=== PATIENT | male | born 1960 | race Caucasian/White ===

== ENCOUNTER 2016-09-17 22:01 | Emergency (ER) | payer OTHER ==
[~2016-09-17] VITALS: Ht 182.9 cm; Wt 125.0 kg
[~2016-09-17 22:01] MED LIST: ADVIL,NUPRIN,M200 MG PO; ALDACTONE100 MG PO; CHLORDIAZEPOXID25 MG PO; FOLIC ACID1 MG PO; HYDROCHLOROTHIA25 MG PO; Thiamine,Vitamin B1 PO
[2016-09-17 23:11] LABS: HEMATOCRIT 31.8 % (38.0-50.0); MCH 35.8 PG (29.0-34.0); MCHC 36.5 G/DL (30.0-36.0); MCV 98.1 FL (86-99); PLATELET COUNT 145 K/uL (156-360); RBC DIS.WIDTH-CV 17.2 % (11.8-14.6); RBC DIS.WIDTH-SD 57.9 % (39-53); RED BLOOD COUNT 3.24 M/uL (4.00-5.50); WHITE BLOOD COUNT 3.7 K/uL (4.1-10.2)
[2016-09-17 23:12] LABS: EOSINOPHIL (%) 9.6 % (0-5); EOSINOPHIL COUNT 0.4 K/uL (0-0.3); IMMATURE GRANULOCYTE (%) 0.3 % (0.0-0.7); IMMATURE GRANULOCYTE COUNT 0.1 K/uL; LYMPHOCYTE COUNT 0.9 K/uL (1.0-2.8); MONOCYTE (%) 5.2 % (3-12); MONOCYTE COUNT 0.2 K/uL (0-0.8); NEUTROPHIL (%) 60.6 % (45-76); NEUTROPHIL COUNT 2.2 K/uL (1.8-6.4)
[2016-09-17 23:22] LABS: CHLORIDE 106 mEq/L (99-109); POTASSIUM 3.8 mEq/L (3.7-5.4); SODIUM 139 mEq/L (136-147)
[2016-09-17 23:24] LABS: GLUCOSE 100 mg/dL (70-99)
[2016-09-17 23:26] LABS: ANION GAP 9 MEQ/L (2-14); TOTAL BILIRUBIN 3.5 mg/dL (0.0-1.0)
[2016-09-17 23:28] LABS: ALKALINE PHOSPHATASE 125 IU/L (3-129); GFR ESTIMATE (CALCULATED) > 59 mL/min/
[2016-09-17 23:29] LABS: UREA NITROGEN (BUN) 32 mg/dL (9-23)
[2016-09-17 23:31] LABS: LIPASE 80 U/L (1.0-51.0)
[2016-09-17 23:32] LABS: TROP-I INTERPRETATION NEGATIVE; TROPONIN-I 0.02 ng/mL (0.0-0.30)
[2016-09-18] MEDS ORDERED: SPIRONOLACTONE100 MG PO (01:58)
[2016-09-18] MEDS ORDERED: FUROSEMIDE20 MG PO (01:59)
[2016-09-18] MEDS ORDERED: MULTI COMPLETE1 EACH PO (01:59)
[2016-09-18 05:16] VITALS: BP 130/65
== END 2016-09-18 05:26 | disposition short-term general hospital (02) ==
LOC: EME 22:01
PROVIDERS: Emergency Medicine
DX: K25.1 Acute gastric ulcer with perforation (principal); K66.8 Other specified disorders of peritoneum; J90 Pleural effusion, not elsewhere classified; K29.00 Acute gastritis without bleeding; K76.6 Portal hypertension; K85.90 Acute pancreatitis without necrosis or infection, unspecified; R18.8 Other ascites; R11.2 Nausea with vomiting, unspecified; K72.90 Hepatic failure, unspecified without coma
CPT/HCPCS: 71010; 74177; 80053; 83605; 83690; 84484; 85025; 86850; 86900; 86901; 87040; 93005; 99281; 99285; J2270; J2405; J2543; J3370; J7030

== ENCOUNTER 2016-10-20 12:52 | Inpatient (IN) | payer OTHER ==
[2016-10-20] VITALS (9 sets, daily range): BP systolic 107–133; BP diastolic 54–71
[~2016-10-20] VITALS: Ht 182.9 cm; Wt 92.5 kg
[~2016-10-20 12:52] MED LIST changes: +FUROSEMIDE20 MG PO; +MULTI COMPLETE1 EACH PO; +SPIRONOLACTONE100 MG PO
[2016-10-20 14:11] LABS: INTER. NORMALIZED RATIO 2.1; MCH 35.4 PG (29.0-34.0); MCHC 34.4 G/DL (30.0-36.0); MCV 102.9 FL (86-99); PROTHROMBIN TIME 21.9 (9.2-11.2); PTT 43.5 (25-32); RBC DIS.WIDTH-CV 18.1 % (11.8-14.6); RBC DIS.WIDTH-SD 70.4 % (39-53); RED BLOOD COUNT 1.75 M/uL (4.00-5.50); WHITE BLOOD COUNT 4.3 K/uL (4.1-10.2)
[2016-10-20 14:19] LABS: CHLORIDE 102 mEq/L (99-109); POTASSIUM 5.2 mEq/L (3.7-5.4); SODIUM 132 mEq/L (136-147)
[2016-10-20 14:21] LABS: GLUCOSE 131 mg/dL (70-99)
[2016-10-20 14:22] LABS: ANION GAP 11 MEQ/L (2-14)
[2016-10-20 14:23] LABS: TOTAL BILIRUBIN 4.6 mg/dL (0.0-1.0)
[2016-10-20 14:25] LABS: ALKALINE PHOSPHATASE 71 IU/L (3-129); GFR ESTIMATE (CALCULATED) > 59 mL/min/
[2016-10-20 14:26] LABS: UREA NITROGEN (BUN) 31 mg/dL (9-23)
[2016-10-20 14:27] LABS: DIRECT BILIRUBIN 1.8 mg/dL (0.0-0.3)
[2016-10-20 14:28] LABS: LIPASE 37 U/L (1.0-51.0)
[2016-10-20 14:31] LABS: TROP-I INTERPRETATION NEGATIVE; TROPONIN-I < 0.01 ng/mL (0.0-0.30)
[2016-10-20 14:43] LABS: IMM.PLATELET FRACTION 3.1 (1-7); MEAN PLAT.VOLUME 10.6 uM^3 (9.0-12.4); PLAT.SUFFICIENCY DECREASED; PLATELET COUNT 36 K/uL (156-360)
[2016-10-20 15:21] LABS: ADD MIUA? YES; BILIRUBIN NEGATIVE; BLOOD MODERATE; COLOR YELLOW ((YELLOW)); GLUCOSE (STRIP) NEGATIVE; KETONES NEGATIVE; LEUKOCYTES TRACE; NITRITE NEGATIVE; PROTEIN (STRIP) NEGATIVE; SPECIFIC GRAVITY 1.013 (1.000-1.030); UROBILINOGEN 0.2 MG/DL (0.2-1.0)
[2016-10-20] MEDS ORDERED: ALDACTONE50 MG PO (15:35)
[2016-10-20] MEDS ORDERED: OXYCODONE HCL10 MG PO (15:36)
[2016-10-20] MEDS ORDERED: CARDURA1 M1 PO (15:36)
[2016-10-20] MEDS ORDERED: PROTONIX40 MG PO (15:37)
[2016-10-20] MEDS ORDERED: PROTONIX20 MG PO (15:37)
[2016-10-20] MEDS ORDERED: AUGMENTIN875 MG PO (15:37)
[2016-10-20] MEDS ORDERED: CONSTULOSE10 GM/15 M PO (15:37)
[2016-10-20] MEDS ORDERED: ZYVOX600 MG PO (15:38)
[2016-10-20 15:39] LABS: BACTERIA NONE SEEN /HPF; EPITHELIAL CELLS NONE SEEN /HPF; HYALINE CASTS 0-5 /LPF; MUCUS TRACE /LPF; UCUL ADDED? NO; WHITE BLOOD CELLS 0-5 /HPF (0-5)
[2016-10-20] MEDS ORDERED: FLAGYL500 MG PO (15:39)
[2016-10-20 22:21] LABS: C DIFF TOXIN NEGATIVE (NEGATIVE); PROBE CHECK PASS; SPECIMEN PROCESSING CONTROL PASS
[2016-10-21] VITALS (18 sets, daily range): BP systolic 119–158; BP diastolic 56–79
[2016-10-21 07:38] LABS: HEMATOCRIT 18.8 % (38.0-50.0); MCH 33.3 PG (29.0-34.0); RBC DIS.WIDTH-CV 20.1 % (11.8-14.6); RBC DIS.WIDTH-SD 71.8 % (39-53); RED BLOOD COUNT 1.92 M/uL (4.00-5.50); WHITE BLOOD COUNT 3.7 K/uL (4.1-10.2)
[2016-10-21 07:45] LABS: ANION GAP 9 MEQ/L (2-14); CHLORIDE 103 MEQ/L (99-109); GFR ESTIMATE (CALCULATED) > 59 mL/min/; GLUCOSE 94 mg/dL (70-99); POTASSIUM 4.7 MEQ/L (3.7-5.4); SAMPLE HEMOLYSIS CHECK 0; SAMPLE ICTERIC CHECK 2; SAMPLE LIPEMIA CHECK 0; SODIUM 134 MEQ/L (136-147); UREA NITROGEN (BUN) 25 mg/dL (9-23)
[2016-10-21 07:50] LABS: MCV 97.9 FL (86-99)
[2016-10-21 08:47] LABS: IMM.PLATELET FRACTION 2.6 (1-7); MEAN PLAT.VOLUME 11.5 uM^3 (9.0-12.4); PLAT.SUFFICIENCY DECREASED
[2016-10-21 08:48] LABS: PLATELET COUNT 30 K/uL (156-360)
[2016-10-21 13:14] LABS: HEMATOCRIT 19.7 % (38.0-50.0); MCH 33.8 PG (29.0-34.0); MCV 99.5 FL (86-99); RBC DIS.WIDTH-CV 20.7 % (11.8-14.6); RBC DIS.WIDTH-SD 75.3 % (39-53); RED BLOOD COUNT 1.98 M/uL (4.00-5.50); WHITE BLOOD COUNT 5.1 K/uL (4.1-10.2)
[2016-10-21 14:17] LABS: IMM.PLATELET FRACTION 3.4 (1-7); MEAN PLAT.VOLUME 11.2 uM^3 (9.0-12.4); PLAT.SUFFICIENCY DECREASED; PLATELET COUNT 34 K/uL (156-360)
[2016-10-21 19:30] LABS: AMPHETAMINES QUANT VALUE 0 NG/ML; BARBITUATES QUANT VALUE 0 NG/ML; BENZODIAZEPINES QUANT VALUE 0 NG/ML; BENZODIAZEPINES, URINE SCREEN Negative (200 ng/mL); MARIJUANA QUANT VALUE 0 NG/ML; OPIATES QUANTITATIVE VALUE 0 NG/ML; PHENCYCLIDINE QUANT VALUE 0 NG/ML
[2016-10-22 00:15] VITALS: BP 117/50
[2016-10-22 03:24] VITALS: BP 131/62
[2016-10-22 08:20] VITALS: BP 118/59
[2016-10-22 08:35] LABS: ANION GAP 6 MEQ/L (2-14); CHLORIDE 104 MEQ/L (99-109); POTASSIUM 4.7 MEQ/L (3.7-5.4); SAMPLE HEMOLYSIS CHECK 0; SAMPLE ICTERIC CHECK 2; SAMPLE LIPEMIA CHECK 0; SODIUM 135 MEQ/L (136-147)
[2016-10-22 08:41] LABS: GFR ESTIMATE (CALCULATED) > 59 mL/min/; GLUCOSE 99 mg/dL (70-99); UREA NITROGEN (BUN) 22 mg/dL (9-23)
[2016-10-22 09:03] LABS: HEMATOCRIT 23.2 % (38.0-50.0); MCH 33.3 PG (29.0-34.0); MCHC 34.5 G/DL (30.0-36.0); MCV 96.7 FL (86-99); RBC DIS.WIDTH-CV 20.3 % (11.8-14.6); RBC DIS.WIDTH-SD 69.7 % (39-53)
[2016-10-22 09:20] LABS: PLAT.SUFFICIENCY VERY DECREASED; PLATELET COUNT 26 K/uL (156-360)
[2016-10-22 11:41] VITALS: BP 142/65
[2016-10-22] MEDS ORDERED: XIFAXAN550 MG PO (12:11)
[2016-10-22] MEDS ORDERED: AMOX TR-K CLV1 EAC4 PO (12:11)
[2016-10-22] MEDS ORDERED: METRONIDAZOLE500 MG PO (12:12)
[2016-10-22] MEDS ORDERED: Chronulac,Cephulac,E PO (12:13)
== END 2016-10-22 13:04 | disposition home health service (06) | DRG 377 ==
LOC: EME → EDBD 12:52 → EME 12:52 → 5SOUTH 20:17 → EDOF 20:17 → 5SOUTH 22:29
PROVIDERS: Emergency Medicine; Family Medicine; Internal Medicine Gastroenterology; Nurse Practitioner Adult Health
DX: K92.2 Gastrointestinal hemorrhage, unspecified (principal); K72.00 Acute and subacute hepatic failure without coma; E87.1 Hypo-osmolality and hyponatremia; K70.31 Alcoholic cirrhosis of liver with ascites; D69.6 Thrombocytopenia, unspecified; R73.9 Hyperglycemia, unspecified; I10 Essential (primary) hypertension; D53.9 Nutritional anemia, unspecified; R79.89 Other specified abnormal findings of blood chemistry; R53.1 Weakness
CPT/HCPCS: 70450; 74176; 80048; 80076; 80306 90; 81003; 82140; 83690; 84484; 85027; 85610; 85730; 86850; 86880; 86900; 86901; 86920; 87493; 87506; 93005; 99281; 99285; C9113; G0480; P9016; P9017; P9040

== ENCOUNTER → 2017-02-01 | Outpatient (CLI) | payer OTHER ==
[~2017-02-01] VITALS: Ht 182.9 cm; Wt 90.7 kg
[~2017-02-01] MED LIST changes: +ALDACTONE50 MG PO; +AMOX TR-K CLV1 EAC4 PO; +AUGMENTIN875 MG PO; +CARDURA1 M1 PO; +CONSTULOSE10 GM/15 M PO; +Chronulac,Cephulac,E PO; +ENULOSE10 GM/15 M PO; +FLAGYL500 MG PO; +LYRICA100 MG PO; +METRONIDAZOLE500 MG PO; +NUTRITIONAL SH PO; +OXAYDO5 MG PO; +OXYCODONE HCL10 MG PO; +PRILOSEC20 MG PO; +PROTONIX20 MG PO; +PROTONIX40 MG PO; +XIFAXAN550 MG PO; +ZYVOX600 MG PO
== END | disposition home or self-care (01) ==
LOC: AMB 10:42 → OPR 13:00 → AMB 14:30
DX: Z12.11 Encounter for screening for malignant neoplasm of colon (principal); D12.7 Benign neoplasm of rectosigmoid junction; D12.2 Benign neoplasm of ascending colon; D12.5 Benign neoplasm of sigmoid colon; D12.3 Benign neoplasm of transverse colon; K76.6 Portal hypertension; K31.89 Other diseases of stomach and duodenum; K64.8 Other hemorrhoids; K70.40 Alcoholic hepatic failure without coma; I10 Essential (primary) hypertension
CPT/HCPCS: 88305; J3010

== ENCOUNTER 2017-04-06 09:08 | Emergency (ER) | payer OTHER ==
[~2017-04-06] VITALS: Ht 182.9 cm; Wt 99.0 kg
[2017-04-06 10:11] LABS: EOSINOPHIL (%) 3.6 % (0-5); EOSINOPHIL COUNT 0.3 K/uL (0-0.3); HEMATOCRIT 32.4 % (38.0-50.0); IMMATURE GRANULOCYTE (%) 0.3 % (0.0-0.7); INSTRUMENT ABS NEUTROPHIL CT 5.4 K/uL; LYMPHOCYTE COUNT 0.7 K/uL (1.0-2.8); MCH 35.1 PG (29.0-34.0); MCHC 34.9 G/DL (30.0-36.0); MCV 100.6 FL (86-99); MEAN PLAT.VOLUME 10.5 uM^3 (9.0-12.4); MONOCYTE (%) 9.6 % (3-12); MONOCYTE COUNT 0.7 K/uL (0-0.8); NEUTROPHIL (%) 76.8 % (45-76); NEUTROPHIL COUNT 5.4 K/uL (1.8-6.4); PLATELET COUNT 69 K/uL (156-360); RBC DIS.WIDTH-CV 17.1 % (11.8-14.6); RBC DIS.WIDTH-SD 62.9 % (39-53); RED BLOOD COUNT 3.22 M/uL (4.00-5.50)
[2017-04-06 10:17] LABS: INTER. NORMALIZED RATIO 2.2; PROTHROMBIN TIME 24.9 SEC (10.2-12.9)
[2017-04-06 10:20] LABS: PTT 40.4 SEC (25-37)
[2017-04-06 10:22] LABS: CHLORIDE 107 mEq/L (99-109); POTASSIUM 4.2 mEq/L (3.7-5.4); SODIUM 136 mEq/L (136-147)
[2017-04-06 10:24] LABS: GLUCOSE 91 mg/dL (70-99)
[2017-04-06 10:26] LABS: ANION GAP 8 MEQ/L (2-14)
[2017-04-06 10:27] LABS: TOTAL BILIRUBIN 6.5 mg/dL (0.0-1.0)
[2017-04-06 10:28] LABS: ALKALINE PHOSPHATASE 122 IU/L (3-129); GFR ESTIMATE (CALCULATED) > 59 mL/min/
[2017-04-06 10:33] LABS: UREA NITROGEN (BUN) 29 mg/dL (9-23)
[2017-04-06 12:01] LABS: SERUM ETHYL ALCOHOL < 10 mg/dL
[2017-04-06 13:25] LABS: AMPHETAMINE NEGATIVE (500 ng/mL); BARBITURATES NEGATIVE (200 ng/mL); BENZODIAZEPINES NEGATIVE (150 ng/mL); COCAINE NEGATIVE (150 ng/mL); METHADONE NEGATIVE (200 ng/mL); METHAMPHETAMINE NEGATIVE (500 ng/mL); OPIATES (MORPHINE) NEGATIVE (100 ng/mL); OXYCODONE NEGATIVE (100 ng/mL); PHENCYCLIDINE NEGATIVE (25 ng/mL); PROPOXYPHENE NEGATIVE (300 ng/mL); THC CANNABINOIDS NEGATIVE (50 ng/mL); TRICYCLIC ANTIDEPRESSANTS NEGATIVE (300 ng/mL)
[2017-04-06 13:26] LABS: INTERNAL CONTROLS VALID? YES
[2017-04-06 14:41] VITALS: BP 109/54
== END 2017-04-06 14:51 | disposition home or self-care (01) ==
LOC: EME 09:08
PROVIDERS: Emergency Medicine
DX: R60.1 Generalized edema (principal); R74.8 Abnormal levels of other serum enzymes; K76.9 Liver disease, unspecified; I10 Essential (primary) hypertension; F10.10 Alcohol abuse, uncomplicated; Z87.19 Personal history of other diseases of the digestive system
CPT/HCPCS: 80053; 82140; 85025; 85610; 85730; 99281; 99284; G0480; J1940

== ENCOUNTER 2017-04-10 12:36 | Inpatient (IN) | payer OTHER ==
[~2017-04-10] VITALS: Ht 182.9 cm; Wt 95.8 kg
[2017-04-10 13:34] LABS: EOSINOPHIL (%) 1.6 % (0-5); EOSINOPHIL COUNT 0.2 K/uL (0-0.3); HEMATOCRIT 31.2 % (38.0-50.0); IMMATURE GRANULOCYTE COUNT 0.1 K/uL; INSTRUMENT ABS NEUTROPHIL CT 8.8 K/uL; LYMPHOCYTE COUNT 0.6 K/uL (1.0-2.8); MCHC 34.9 G/DL (30.0-36.0); MCV 100.3 FL (86-99); MEAN PLAT.VOLUME 12.4 uM^3 (9.0-12.4); MONOCYTE (%) 10.2 % (3-12); MONOCYTE COUNT 1.1 K/uL (0-0.8); NEUTROPHIL (%) 81.2 % (45-76); NEUTROPHIL COUNT 8.8 K/uL (1.8-6.4); PLATELET COUNT 82 K/uL (156-360); RBC DIS.WIDTH-CV 17.7 % (11.8-14.6); RBC DIS.WIDTH-SD 64.8 % (39-53); RED BLOOD COUNT 3.11 M/uL (4.00-5.50); WHITE BLOOD COUNT 10.9 K/uL (4.1-10.2)
[2017-04-10 13:39] LABS: CHLORIDE 106 mEq/L (99-109); POTASSIUM 3.9 mEq/L (3.7-5.4); SODIUM 137 mEq/L (136-147)
[2017-04-10 13:41] LABS: GLUCOSE 111 mg/dL (70-99)
[2017-04-10 13:42] LABS: ADD MIUA? YES; BILIRUBIN NEGATIVE; BLOOD MODERATE; COLOR AMBER ((YELLOW)); GLUCOSE (STRIP) NEGATIVE; KETONES NEGATIVE; LEUKOCYTES SMALL; NITRITE NEGATIVE; PROTEIN (STRIP) 30; SPECIFIC GRAVITY 1.015 (1.000-1.030)
[2017-04-10 13:43] LABS: ANION GAP 13 MEQ/L (2-14); TOTAL BILIRUBIN 7.6 mg/dL (0.0-1.0)
[2017-04-10 13:44] LABS: INTER. NORMALIZED RATIO 2.5; PROTHROMBIN TIME 28.3 SEC (10.2-12.9)
[2017-04-10 13:45] LABS: ALKALINE PHOSPHATASE 114 IU/L (3-129); GFR ESTIMATE (CALCULATED) > 59 mL/min/
[2017-04-10 13:46] LABS: UREA NITROGEN (BUN) 38 mg/dL (9-23)
[2017-04-10 13:46] LABS: BACTERIA 1+ /HPF; EPITHELIAL CELLS NONE SEEN /HPF; MUCUS TRACE /LPF; RED BLOOD CELLS 15-20 /HPF (0-5); WHITE BLOOD CELLS 40-50 /HPF (0-5)
[2017-04-10 20:08] VITALS: BP 115/59
[2017-04-10 23:29] VITALS: BP 109/55
[2017-04-11 04:06] VITALS: BP 102/58
[2017-04-11 08:26] VITALS: BP 126/57
[2017-04-11 12:35] LABS: HEMATOCRIT 32.9 % (38.0-50.0); MCH 36.1 PG (29.0-34.0); MCHC 34.7 G/DL (30.0-36.0); MCV 104.1 FL (86-99); MEAN PLAT.VOLUME 11.8 uM^3 (9.0-12.4); RBC DIS.WIDTH-CV 17.6 % (11.8-14.6); RBC DIS.WIDTH-SD 67.4 % (39-53); RED BLOOD COUNT 3.16 M/uL (4.00-5.50); WHITE BLOOD COUNT 11.6 K/uL (4.1-10.2)
[2017-04-11 12:43] LABS: ANION GAP 8 MEQ/L (2-14); CHLORIDE 106 MEQ/L (99-109); GFR ESTIMATE (CALCULATED) > 59 mL/min/; GLUCOSE 110 mg/dL (70-99); POTASSIUM 4.2 MEQ/L (3.7-5.4); SAMPLE HEMOLYSIS CHECK 0; SAMPLE ICTERIC CHECK 2; SAMPLE LIPEMIA CHECK 0; SODIUM 138 MEQ/L (136-147); UREA NITROGEN (BUN) 31 mg/dL (9-23)
[2017-04-11 12:59] LABS: PLATELET COUNT 107 K/uL (156-360)
[2017-04-11 15:52] VITALS: BP 111/56
[2017-04-11 19:39] VITALS: BP 109/53
[2017-04-11 23:30] VITALS: BP 103/52
[2017-04-12 07:43] VITALS: BP 105/54
[2017-04-12 07:49] LABS: ANION GAP 4 MEQ/L (2-14); CHLORIDE 107 MEQ/L (99-109); GFR ESTIMATE (CALCULATED) > 59 mL/min/; SAMPLE HEMOLYSIS CHECK 0; SAMPLE ICTERIC CHECK 2; SAMPLE LIPEMIA CHECK 0; SODIUM 138 MEQ/L (136-147); UREA NITROGEN (BUN) 30 mg/dL (9-23)
[2017-04-12 07:51] LABS: GLUCOSE 72 mg/dL (70-99)
[2017-04-12 07:55] LABS: MCH 36.2 PG (29.0-34.0); MCHC 34.8 G/DL (30.0-36.0); MCV 103.9 FL (86-99); MEAN PLAT.VOLUME 9.8 uM^3 (9.0-12.4); PLAT.SUFFICIENCY DECREASED; PLATELET COUNT 69 K/uL (156-360); RBC DIS.WIDTH-CV 17.2 % (11.8-14.6); RBC DIS.WIDTH-SD 66.1 % (39-53); RED BLOOD COUNT 2.79 M/uL (4.00-5.50); WHITE BLOOD COUNT 5.1 K/uL (4.1-10.2)
[2017-04-12 12:39] VITALS: BP 107/54
[2017-04-12 16:28] VITALS: BP 117/56
[2017-04-13 00:07] VITALS: BP 124/58
[2017-04-13 08:12] VITALS: BP 114/76
[2017-04-13] MEDS ORDERED: AUGMENTIN875 MG PO (12:22)
[2017-04-13 14:34] LABS: ADD MIUA? YES; BILIRUBIN NEGATIVE; BLOOD LARGE; COLOR AMBER ((YELLOW)); GLUCOSE (STRIP) NEGATIVE; KETONES NEGATIVE; LEUKOCYTES MODERATE; NITRITE NEGATIVE; PROTEIN (STRIP) NEGATIVE; SPECIFIC GRAVITY 1.016 (1.000-1.030)
[2017-04-13 14:53] LABS: BACTERIA RARE /HPF; EPITHELIAL CELLS RARE /HPF; MUCUS TRACE /LPF; RED BLOOD CELLS 20-30 /HPF (0-5); UCUL ADDED? YES; UNCLASSIFIED CRYSTALS 1+ /HPF; WHITE BLOOD CELLS TNTC /HPF (0-5)
== END 2017-04-13 15:47 | disposition home health service (06) | DRG 603 ==
LOC: EME 12:36 → EDOF 14:24 → 3EAST 14:24 → ENRESERV 14:48 → 3EAST 19:50
PROVIDERS: Emergency Medicine; Family Medicine
DX: L03.115 Cellulitis of right lower limb (principal); K92.2 Gastrointestinal hemorrhage, unspecified; N39.0 Urinary tract infection, site not specified; D64.9 Anemia, unspecified; K76.6 Portal hypertension; Z76.82 Awaiting organ transplant status; L03.116 Cellulitis of left lower limb; K70.31 Alcoholic cirrhosis of liver with ascites; I10 Essential (primary) hypertension; F10.10 Alcohol abuse, uncomplicated; I42.0 Dilated cardiomyopathy; Z68.28 Body mass index [BMI] 28.0-28.9, adult; Z87.891 Personal history of nicotine dependence
CPT/HCPCS: 80048; 80053; 81003; 82140; 85025; 85027; 85610; 87086; 99281; 99285; J0295; J7050

== ENCOUNTER 2017-04-21 14:14 | Inpatient (IN) | payer OTHER ==
[~2017-04-21] VITALS: Ht 182.9 cm; Wt 88.7 kg
[2017-04-21 15:37] LABS: HEMATOCRIT 27.6 % (38.0-50.0); MCH 36.2 PG (29.0-34.0); MCHC 35.5 G/DL (30.0-36.0); MCV 101.8 FL (86-99); MEAN PLAT.VOLUME 10.4 uM^3 (9.0-12.4); RBC DIS.WIDTH-CV 17.8 % (11.8-14.6); RBC DIS.WIDTH-SD 65.9 % (39-53); RED BLOOD COUNT 2.71 M/uL (4.00-5.50); WHITE BLOOD COUNT 19.9 K/uL (4.1-10.2)
[2017-04-21 15:38] LABS: PLATELET COUNT 124 K/uL (156-360)
[2017-04-21 15:42] LABS: PROTHROMBIN TIME 22.1 SEC (10.2-12.9)
[2017-04-21 15:45] LABS: PTT 40.2 SEC (25-37)
[2017-04-21 15:47] LABS: CHLORIDE 99 mEq/L (99-109); SODIUM 127 mEq/L (136-147)
[2017-04-21 15:49] LABS: GLUCOSE 123 mg/dL (70-99)
[2017-04-21 15:51] LABS: ANION GAP 8 MEQ/L (2-14); TOTAL BILIRUBIN 7.5 mg/dL (0.0-1.0)
[2017-04-21 15:53] LABS: ALKALINE PHOSPHATASE 166 IU/L (3-129); GFR ESTIMATE (CALCULATED) > 59 mL/min/
[2017-04-21 15:54] LABS: UREA NITROGEN (BUN) 57 mg/dL (9-23)
[2017-04-21 17:00] LABS: ADD MIUA? YES; BILIRUBIN NEGATIVE; BLOOD LARGE; COLOR AMBER ((YELLOW)); GLUCOSE (STRIP) NEGATIVE; KETONES NEGATIVE; LEUKOCYTES MODERATE; NITRITE NEGATIVE; PROTEIN (STRIP) NEGATIVE; SPECIFIC GRAVITY 1.015 (1.000-1.030); UROBILINOGEN 0.2 MG/DL (0.2-1.0)
[2017-04-21 17:06] LABS: BACTERIA RARE /HPF; CALCIUM OXALATE CRYSTALS 2+ /HPF; EPITHELIAL CELLS RARE /HPF; MUCUS TRACE /LPF; RED BLOOD CELLS TNTC /HPF (0-5); UCUL ADDED? YES; WHITE BLOOD CELLS TNTC /HPF (0-5)
[2017-04-21] MEDS ORDERED: B-COMPLEX-VITA1 EACH PO (18:33)
[2017-04-21] MEDS ORDERED: BACTROBAN OINTM22 GM TP (18:33)
[2017-04-21] MEDS ORDERED: SUPER MULTIVIT1 EACH PO (18:33)
[2017-04-21 23:52] VITALS: BP 92/54
[2017-04-22 05:54] LABS: HEMATOCRIT 25.4 % (38.0-50.0); MCH 37.8 PG (29.0-34.0); MCHC 36.6 G/DL (30.0-36.0); MCV 103.3 FL (86-99); MEAN PLAT.VOLUME 10.7 uM^3 (9.0-12.4); PLATELET COUNT 104 K/uL (156-360); RBC DIS.WIDTH-SD 68.5 % (39-53); RED BLOOD COUNT 2.46 M/uL (4.00-5.50); WHITE BLOOD COUNT 12.5 K/uL (4.1-10.2)
[2017-04-22 08:26] VITALS: BP 92/54
[2017-04-22 09:21] LABS: ANION GAP 5 MEQ/L (2-14); CHLORIDE 100 MEQ/L (99-109); GFR ESTIMATE (CALCULATED) > 59 mL/min/; GLUCOSE 121 mg/dL (70-99); POTASSIUM 5.5 MEQ/L (3.7-5.4); SAMPLE HEMOLYSIS CHECK 1; SAMPLE ICTERIC CHECK 2; SAMPLE LIPEMIA CHECK 0; SODIUM 125 MEQ/L (136-147); TOTAL BILIRUBIN 6.7 MG/DL (0.0-1.0); UREA NITROGEN (BUN) 52 mg/dL (9-23)
[2017-04-22 09:25] LABS: ALKALINE PHOSPHATASE 133 IU/L (3-129)
[2017-04-22 16:18] VITALS: BP 100/49
[2017-04-23 00:50] VITALS: BP 102/54
[2017-04-23 06:55] VITALS: BP 93/50
[2017-04-23 09:06] LABS: MCHC 35.2 G/DL (30.0-36.0); MCV 102.5 FL (86-99); MEAN PLAT.VOLUME 10.6 uM^3 (9.0-12.4); RBC DIS.WIDTH-CV 18.3 % (11.8-14.6); RBC DIS.WIDTH-SD 69.1 % (39-53); RED BLOOD COUNT 2.83 M/uL (4.00-5.50)
[2017-04-23 09:08] LABS: PLATELET COUNT 151 K/uL (156-360)
[2017-04-23 09:36] LABS: ALKALINE PHOSPHATASE 135 IU/L (3-129); ANION GAP 5 MEQ/L (2-14); CHLORIDE 101 MEQ/L (99-109); GFR ESTIMATE (CALCULATED) > 59 mL/min/; GLUCOSE 128 mg/dL (70-99); POTASSIUM 5.4 MEQ/L (3.7-5.4); SAMPLE HEMOLYSIS CHECK 0; SAMPLE ICTERIC CHECK 2; SAMPLE LIPEMIA CHECK 0; SODIUM 126 MEQ/L (136-147); TOTAL BILIRUBIN 6.7 MG/DL (0.0-1.0); UREA NITROGEN (BUN) 54 mg/dL (9-23)
[2017-04-23 15:00] VITALS: BP 101/48
[2017-04-24 00:50] VITALS: BP 102/53
[2017-04-24 06:16] LABS: HEMATOCRIT 29.5 % (38.0-50.0); MCHC 35.3 G/DL (30.0-36.0); MEAN PLAT.VOLUME 10.2 uM^3 (9.0-12.4); PLATELET COUNT 156 K/uL (156-360); RBC DIS.WIDTH-SD 69.9 % (39-53); RED BLOOD COUNT 2.81 M/uL (4.00-5.50); WHITE BLOOD COUNT 9.8 K/uL (4.1-10.2)
[2017-04-24 06:37] LABS: ALKALINE PHOSPHATASE 146 IU/L (3-129); ANION GAP 3 MEQ/L (2-14); CHLORIDE 100 MEQ/L (99-109); GFR ESTIMATE (CALCULATED) > 59 mL/min/; GLUCOSE 108 mg/dL (70-99); POTASSIUM 5.7 MEQ/L (3.7-5.4); SAMPLE HEMOLYSIS CHECK 0; SAMPLE ICTERIC CHECK 2; SAMPLE LIPEMIA CHECK 0; SODIUM 126 MEQ/L (136-147); TOTAL BILIRUBIN 5.8 MG/DL (0.0-1.0); UREA NITROGEN (BUN) 56 mg/dL (9-23)
[2017-04-24 07:38] VITALS: BP 106/46
[2017-04-24 16:00] VITALS: BP 104/54
[2017-04-24 21:08] VITALS: BP 175/81
[2017-04-25] VITALS: BP 101/54
[2017-04-25 06:55] LABS: ALKALINE PHOSPHATASE 167 IU/L (3-129); ANION GAP 4 MEQ/L (2-14); CHLORIDE 97 MEQ/L (99-109); GFR ESTIMATE (CALCULATED) > 59 mL/min/; GLUCOSE 98 mg/dL (70-99); POTASSIUM 5.8 MEQ/L (3.7-5.4); SAMPLE HEMOLYSIS CHECK 0; SAMPLE ICTERIC CHECK 1; SAMPLE LIPEMIA CHECK 0; SODIUM 124 MEQ/L (136-147); UREA NITROGEN (BUN) 59 mg/dL (9-23)
[2017-04-25 06:57] LABS: TOTAL BILIRUBIN 4.2 MG/DL (0.0-1.0)
[2017-04-25 07:32] VITALS: BP 97/48
[2017-04-25 16:37] VITALS: BP 97/46
[2017-04-26] VITALS (9 sets, daily range): BP systolic 92–115; BP diastolic 48–54
[2017-04-26 07:19] LABS: ALKALINE PHOSPHATASE 169 IU/L (3-129); ANION GAP 3 MEQ/L (2-14); CHLORIDE 99 MEQ/L (99-109); GFR ESTIMATE (CALCULATED) > 59 mL/min/; GLUCOSE 86 mg/dL (70-99); SAMPLE HEMOLYSIS CHECK 0; SAMPLE ICTERIC CHECK 1; SAMPLE LIPEMIA CHECK 0; SODIUM 126 MEQ/L (136-147); UREA NITROGEN (BUN) 61 mg/dL (9-23)
[2017-04-26 07:22] LABS: POTASSIUM 6.1 MEQ/L (3.7-5.4)
[2017-04-26 11:44] LABS: HEMATOCRIT 29.1 % (38.0-50.0); MCH 37.5 PG (29.0-34.0); MCHC 35.4 G/DL (30.0-36.0); MCV 105.8 FL (86-99); MEAN PLAT.VOLUME 10.3 uM^3 (9.0-12.4); PLATELET COUNT 115 K/uL (156-360); RBC DIS.WIDTH-CV 18.1 % (11.8-14.6); RBC DIS.WIDTH-SD 69.8 % (39-53); RED BLOOD COUNT 2.75 M/uL (4.00-5.50); WHITE BLOOD COUNT 7.1 K/uL (4.1-10.2)
[2017-04-26 12:14] LABS: ALKALINE PHOSPHATASE 154 IU/L (3-129); ANION GAP 3 MEQ/L (2-14); CHLORIDE 100 MEQ/L (99-109); GFR ESTIMATE (CALCULATED) > 59 mL/min/; GLUCOSE 97 mg/dL (70-99); SAMPLE HEMOLYSIS CHECK 2; SAMPLE ICTERIC CHECK 1; SAMPLE LIPEMIA CHECK 0; SODIUM 126 MEQ/L (136-147); TOTAL BILIRUBIN 3.9 MG/DL (0.0-1.0); UREA NITROGEN (BUN) 60 mg/dL (9-23)
[2017-04-26 16:50] LABS: ANION GAP 2 MEQ/L (2-14); CHLORIDE 99 MEQ/L (99-109); POTASSIUM 5.7 MEQ/L (3.7-5.4); SAMPLE HEMOLYSIS CHECK 1; SAMPLE ICTERIC CHECK 1; SAMPLE LIPEMIA CHECK 0; SODIUM 127 MEQ/L (136-147)
[2017-04-26 16:55] LABS: GFR ESTIMATE (CALCULATED) > 59 mL/min/; GLUCOSE 105 mg/dL (70-99); UREA NITROGEN (BUN) 58 mg/dL (9-23)
[2017-04-26 21:24] LABS: ANION GAP 4 MEQ/L (2-14); CHLORIDE 100 MEQ/L (99-109); GFR ESTIMATE (CALCULATED) > 59 mL/min/; GLUCOSE 106 mg/dL (70-99); POTASSIUM 5.4 MEQ/L (3.7-5.4); SAMPLE HEMOLYSIS CHECK 0; SAMPLE ICTERIC CHECK 1; SAMPLE LIPEMIA CHECK 0; SODIUM 128 MEQ/L (136-147); UREA NITROGEN (BUN) 56 mg/dL (9-23)
[2017-04-27 07:25] VITALS: BP 101/55
[2017-04-27 07:27] LABS: ALKALINE PHOSPHATASE 140 IU/L (3-129); ANION GAP 3 MEQ/L (2-14); CHLORIDE 98 MEQ/L (99-109); GFR ESTIMATE (CALCULATED) > 59 mL/min/; GLUCOSE 114 mg/dL (70-99); POTASSIUM 5.3 MEQ/L (3.7-5.4); SAMPLE HEMOLYSIS CHECK 0; SAMPLE ICTERIC CHECK 1; SAMPLE LIPEMIA CHECK 0; SODIUM 126 MEQ/L (136-147); UREA NITROGEN (BUN) 59 mg/dL (9-23)
[2017-04-27 16:36] VITALS: BP 102/60
[2017-04-27 22:55] VITALS: BP 123/58
[2017-04-28 06:31] LABS: HEMATOCRIT 26.8 % (38.0-50.0); MCV 105.9 FL (86-99); MEAN PLAT.VOLUME 10.8 uM^3 (9.0-12.4); PLATELET COUNT 105 K/uL (156-360); RBC DIS.WIDTH-CV 17.6 % (11.8-14.6); RBC DIS.WIDTH-SD 68.5 % (39-53); RED BLOOD COUNT 2.53 M/uL (4.00-5.50); WHITE BLOOD COUNT 7.5 K/uL (4.1-10.2)
[2017-04-28 07:05] LABS: ANION GAP 4 MEQ/L (2-14); CHLORIDE 96 MEQ/L (99-109); GFR ESTIMATE (CALCULATED) > 59 mL/min/; GLUCOSE 108 mg/dL (70-99); POTASSIUM 5.1 MEQ/L (3.7-5.4); SAMPLE HEMOLYSIS CHECK 0; SAMPLE ICTERIC CHECK 1; SAMPLE LIPEMIA CHECK 0; SODIUM 123 MEQ/L (136-147); TOTAL BILIRUBIN 3.6 MG/DL (0.0-1.0); UREA NITROGEN (BUN) 63 mg/dL (9-23)
[2017-04-28 07:06] LABS: ALKALINE PHOSPHATASE 178 IU/L (3-129)
[2017-04-28 07:41] VITALS: BP 128/68
[2017-04-28 16:43] VITALS: BP 120/66
[2017-04-28 23:51] VITALS: BP 148/81
[2017-04-29 05:51] LABS: ALKALINE PHOSPHATASE 153 IU/L (3-129); ANION GAP 3 MEQ/L (2-14); CHLORIDE 100 MEQ/L (99-109); GFR ESTIMATE (CALCULATED) > 59 mL/min/; GLUCOSE 83 mg/dL (70-99); POTASSIUM 5.5 MEQ/L (3.7-5.4); SAMPLE HEMOLYSIS CHECK 0; SAMPLE ICTERIC CHECK 1; SAMPLE LIPEMIA CHECK 0; SODIUM 125 MEQ/L (136-147); TOTAL BILIRUBIN 3.5 MG/DL (0.0-1.0); UREA NITROGEN (BUN) 64 mg/dL (9-23); URIC ACID 8.6 mg/dL (3.1-9.2)
[2017-04-29] MEDS ORDERED: MIDODRINE HCL5 MG PO (07:55)
[2017-04-29 08:43] VITALS: BP 109/49
== END 2017-04-29 13:42 | disposition home health service (06) | DRG 689 ==
LOC: EME 14:14 → EDOF 18:13 → 5EAST 18:13 → CANRESERV 18:26 → ENRESERV 18:26 → EDOF 20:38 → 5EAST 20:39 → ENPENDDIS 04-29 → 5EAST 04-29 13:42
PROVIDERS: Emergency Medicine; Family Medicine; Internal Medicine; Internal Medicine Nephrology
DX: N30.90 Cystitis, unspecified without hematuria (principal); R78.81 Bacteremia; B96.89 Other specified bacterial agents as the cause of diseases classified elsewhere; L89.323 Pressure ulcer of left buttock, stage 3; L89.313 Pressure ulcer of right buttock, stage 3; Z76.82 Awaiting organ transplant status; I95.9 Hypotension, unspecified; K72.10 Chronic hepatic failure without coma; E87.2 Acidosis; E87.1 Hypo-osmolality and hyponatremia; L03.115 Cellulitis of right lower limb; L97.818 Non-pressure chronic ulcer of other part of right lower leg with other specified severity; L03.116 Cellulitis of left lower limb; L97.821 Non-pressure chronic ulcer of other part of left lower leg limited to breakdown of skin; D69.6 Thrombocytopenia, unspecified; E87.8 Other disorders of electrolyte and fluid balance, not elsewhere classified; E87.5 Hyperkalemia; S91.101A Unspecified open wound of right great toe without damage to nail, initial encounter; S81.001A Unspecified open wound, right knee, initial encounter; S81.002A Unspecified open wound, left knee, initial encounter; L97.521 Non-pressure chronic ulcer of other part of left foot limited to breakdown of skin; K70.31 Alcoholic cirrhosis of liver with ascites; K76.6 Portal hypertension; K70.11 Alcoholic hepatitis with ascites; I42.0 Dilated cardiomyopathy; S51.001A Unspecified open wound of right elbow, initial encounter; B96.20 Unspecified Escherichia coli [E. coli] as the cause of diseases classified elsewhere; R79.89 Other specified abnormal findings of blood chemistry; F43.20 Adjustment disorder, unspecified; I10 Essential (primary) hypertension; I89.0 Lymphedema, not elsewhere classified; D63.8 Anemia in other chronic diseases classified elsewhere; F10.21 Alcohol dependence, in remission; R60.1 Generalized edema; K31.89 Other diseases of stomach and duodenum; Z87.891 Personal history of nicotine dependence
CPT/HCPCS: 36415; 71010; 80048 91; 80053; 81003; 82140; 83605; 83935; 84300; 84550; 85025; 85025 91; 85027; 85610; 85730; 87040; 87077; 87086; 87186; 87801; 97530 GO; 97530 GP; 99281; 99285; A6242; J0696; J1940; J1956; J2405; J3010; J7030; J7040; J7050

== ENCOUNTER 2017-05-20 18:00 | Inpatient (IN) | payer OTHER ==
[~2017-05-20] VITALS: Ht 182.9 cm; Wt 90.6 kg
[~2017-05-20 18:00] MED LIST changes: +ASPIR-LOW81 MG PO; +B-COMPLEX-VITA1 EACH PO; +BACTRIM,SEPT1 TABLE1 PO; +BACTROBAN OINTM22 GM TP; +CELLCEPT250 MG PO; +DIFLUCAN100 MG PO; +DOCUSATE SODIU100 MG PO; +HEPARIN SO5000 UNIT4 SC; +LYRICA50 MG PO; +MAGNESIUM OXID400 MG PO; +MIDODRINE HCL5 MG PO; +MULTI VITAMIN1 EACH PO; +PREDNISONE20 MG PO; +PROGRAF1 MG PO; +PROGRAF5 MG PO; +SENNA8.6 MG PO; +SUPER MULTIVIT1 EACH PO; +VALCYTE450 MG PO
[2017-05-20 20:08] LABS: INTER. NORMALIZED RATIO 1.2; PROTHROMBIN TIME 13.2 SEC (10.2-12.9)
[2017-05-20 20:09] LABS: CHLORIDE 105 mEq/L (99-109); SODIUM 135 mEq/L (136-147)
[2017-05-20 20:13] LABS: ANION GAP 5 MEQ/L (2-14); EOSINOPHIL (%) 0.2 % (0-5); HEMATOCRIT 19.8 % (38.0-50.0); IMMATURE GRANULOCYTE (%) 0.7 % (0.0-0.7); INSTRUMENT ABS NEUTROPHIL CT 3.6 K/uL; LYMPHOCYTE COUNT 0.3 K/uL (1.0-2.8); MCH 33.2 PG (29.0-34.0); MCHC 33.3 G/DL (30.0-36.0); MCV 99.5 FL (86-99); MEAN PLAT.VOLUME 10.6 uM^3 (9.0-12.4); MONOCYTE (%) 10.5 % (3-12); MONOCYTE COUNT 0.5 K/uL (0-0.8); NEUTROPHIL (%) 81.8 % (45-76); NEUTROPHIL COUNT 3.6 K/uL (1.8-6.4); PLATELET COUNT 182 K/uL (156-360); RBC DIS.WIDTH-CV 15.8 % (11.8-14.6); RBC DIS.WIDTH-SD 57.5 % (39-53); RED BLOOD COUNT 1.99 M/uL (4.00-5.50); WHITE BLOOD COUNT 4.4 K/uL (4.1-10.2)
[2017-05-20 20:15] LABS: ALKALINE PHOSPHATASE 235 IU/L (3-129); GFR ESTIMATE (CALCULATED) 47 mL/min/; PTT 29.7 SEC (25-37); TOTAL BILIRUBIN 0.8 mg/dL (0.0-1.0)
[2017-05-20 20:16] LABS: UREA NITROGEN (BUN) 57 mg/dL (9-23)
[2017-05-20 20:23] LABS: SERUM ETHYL ALCOHOL < 10 mg/dL
[2017-05-20 20:25] LABS: POTASSIUM 6.6 mEq/L (3.7-5.4)
[2017-05-20 20:27] LABS: GLUCOSE 135 mg/dL (70-99)
[2017-05-20 22:30] VITALS: BP 139/43
[2017-05-20 22:52] VITALS: BP 124/32
[2017-05-20 23:52] VITALS: BP 108/50
[2017-05-21] VITALS (9 sets, daily range): BP systolic 101–143; BP diastolic 52–80
[2017-05-21 08:08] LABS: BASOPHIL COUNT 0.1 K/uL (0-0.1); EOSINOPHIL (%) 1.1 % (0-5); EOSINOPHIL COUNT 0.1 K/uL (0-0.3); HEMATOCRIT 24.5 % (38.0-50.0); IMMATURE GRANULOCYTE (%) 0.7 % (0.0-0.7); INSTRUMENT ABS NEUTROPHIL CT 3.4 K/uL; LYMPHOCYTE COUNT 0.4 K/uL (1.0-2.8); MCH 32.3 PG (29.0-34.0); MCHC 33.5 G/DL (30.0-36.0); MCV 96.5 FL (86-99); MEAN PLAT.VOLUME 10.6 uM^3 (9.0-12.4); MONOCYTE (%) 10.1 % (3-12); MONOCYTE COUNT 0.4 K/uL (0-0.8); NEUTROPHIL (%) 78.3 % (45-76); NEUTROPHIL COUNT 3.4 K/uL (1.8-6.4); PLATELET COUNT 183 K/uL (156-360); RBC DIS.WIDTH-CV 17.8 % (11.8-14.6); WHITE BLOOD COUNT 4.4 K/uL (4.1-10.2)
[2017-05-21 08:13] LABS: RED BLOOD COUNT 2.54 M/uL (4.00-5.50)
[2017-05-21 08:36] LABS: ALKALINE PHOSPHATASE 217 IU/L (3-129); ANION GAP 8 MEQ/L (2-14); CHLORIDE 107 MEQ/L (99-109); DIRECT BILIRUBIN 0.4 mg/dL (0.0-0.3); GFR ESTIMATE (CALCULATED) > 59 mL/min/; GLUCOSE 100 mg/dL (70-99); POTASSIUM 5.3 MEQ/L (3.7-5.4); SAMPLE HEMOLYSIS CHECK 0; SAMPLE ICTERIC CHECK 0; SAMPLE LIPEMIA CHECK 0; SODIUM 141 MEQ/L (136-147); TOTAL BILIRUBIN 0.9 MG/DL (0.0-1.0); UREA NITROGEN (BUN) 53 mg/dL (9-23)
[2017-05-22] VITALS (7 sets, daily range): BP systolic 123–144; BP diastolic 60–85
[2017-05-22 05:41] LABS: BASOPHIL COUNT 0.1 K/uL (0-0.1); EOSINOPHIL (%) 1.3 % (0-5); EOSINOPHIL COUNT 0.1 K/uL (0-0.3); HEMATOCRIT 23.6 % (38.0-50.0); IMMATURE GRANULOCYTE (%) 0.4 % (0.0-0.7); INSTRUMENT ABS NEUTROPHIL CT 3.7 K/uL; LYMPHOCYTE COUNT 0.5 K/uL (1.0-2.8); MCH 31.3 PG (29.0-34.0); MCHC 31.8 G/DL (30.0-36.0); MCV 98.3 FL (86-99); MEAN PLAT.VOLUME 10.6 uM^3 (9.0-12.4); MONOCYTE (%) 7.3 % (3-12); MONOCYTE COUNT 0.3 K/uL (0-0.8); NEUTROPHIL (%) 78.9 % (45-76); NEUTROPHIL COUNT 3.7 K/uL (1.8-6.4); PLATELET COUNT 170 K/uL (156-360); RBC DIS.WIDTH-CV 17.2 % (11.8-14.6); RBC DIS.WIDTH-SD 62.8 % (39-53); WHITE BLOOD COUNT 4.6 K/uL (4.1-10.2)
[2017-05-22 06:00] LABS: ALKALINE PHOSPHATASE 181 IU/L (3-129); ANION GAP 7 MEQ/L (2-14); CHLORIDE 109 MEQ/L (99-109); GFR ESTIMATE (CALCULATED) > 59 mL/min/; GLUCOSE 94 mg/dL (70-99); POTASSIUM 4.5 MEQ/L (3.7-5.4); SAMPLE HEMOLYSIS CHECK 0; SAMPLE ICTERIC CHECK 0; SAMPLE LIPEMIA CHECK 0; SODIUM 143 MEQ/L (136-147); TOTAL BILIRUBIN 0.8 MG/DL (0.0-1.0); UREA NITROGEN (BUN) 37 mg/dL (9-23)
[2017-05-23 04:29] VITALS: BP 148/70
[2017-05-23 04:50] LABS: MCH 31.6 PG (29.0-34.0); MCHC 32.6 G/DL (30.0-36.0); MEAN PLAT.VOLUME 10.5 uM^3 (9.0-12.4); PLATELET COUNT 180 K/uL (156-360); RBC DIS.WIDTH-SD 57.1 % (39-53); RED BLOOD COUNT 2.37 M/uL (4.00-5.50)
[2017-05-23 08:00] VITALS: BP 132/81
[2017-05-23 11:18] VITALS: BP 129/72
[2017-05-23 16:04] VITALS: BP 129/73
[2017-05-23 19:14] VITALS: BP 139/61
[2017-05-23 23:49] VITALS: BP 137/63
[2017-05-24 03:34] VITALS: BP 141/66
[2017-05-24 06:46] VITALS: BP 128/79
[2017-05-24 11:53] VITALS: BP 134/68
[2017-05-24 15:55] VITALS: BP 142/69
[2017-05-24 19:07] VITALS: BP 139/63
[2017-05-24 23:14] VITALS: BP 136/82
[2017-05-25 04:26] VITALS: BP 134/62
[2017-05-25 07:15] VITALS: BP 143/69
[2017-05-25 11:15] VITALS: BP 138/63
[2017-05-25 15:15] VITALS: BP 138/66
[2017-05-25] MEDS ORDERED: TRAMADOL HCL50 MG PO (15:18)
[2017-05-25] MEDS ORDERED: OXYCODONE HCL5 MG PO (15:18)
[2017-05-25 19:18] VITALS: BP 131/62
[2017-05-25 23:09] VITALS: BP 145/71
[2017-05-26 04:39] VITALS: BP 134/76
[2017-05-26 05:29] LABS: BASOPHIL COUNT 0.1 K/uL (0-0.1); EOSINOPHIL COUNT 0.1 K/uL (0-0.3); HEMATOCRIT 24.9 % (38.0-50.0); IMMATURE GRANULOCYTE (%) 0.6 % (0.0-0.7); LYMPHOCYTE COUNT 0.5 K/uL (1.0-2.8); MCH 32.7 PG (29.0-34.0); MCHC 32.9 G/DL (30.0-36.0); MCV 99.2 FL (86-99); MEAN PLAT.VOLUME 10.2 uM^3 (9.0-12.4); MONOCYTE (%) 6.2 % (3-12); MONOCYTE COUNT 0.3 K/uL (0-0.8); NEUTROPHIL (%) 80.4 % (45-76); PLATELET COUNT 220 K/uL (156-360); RBC DIS.WIDTH-CV 15.3 % (11.8-14.6); RBC DIS.WIDTH-SD 55.6 % (39-53); RED BLOOD COUNT 2.51 M/uL (4.00-5.50)
[2017-05-26 06:13] LABS: ALKALINE PHOSPHATASE 165 IU/L (3-129); ANION GAP 7 MEQ/L (2-14); CHLORIDE 110 MEQ/L (99-109); GFR ESTIMATE (CALCULATED) > 59 mL/min/; GLUCOSE 99 mg/dL (70-99); SAMPLE HEMOLYSIS CHECK 0; SAMPLE ICTERIC CHECK 0; SAMPLE LIPEMIA CHECK 0; SODIUM 144 MEQ/L (136-147); UREA NITROGEN (BUN) 34 mg/dL (9-23)
[2017-05-26 06:14] LABS: POTASSIUM 5.5 MEQ/L (3.7-5.4); TOTAL BILIRUBIN 0.6 MG/DL (0.0-1.0)
[2017-05-26 07:59] VITALS: BP 156/75
[2017-05-26 11:00] VITALS: BP 132/60
== END 2017-05-26 13:45 | DRG 872 ==
LOC: EME 18:00 → EDOF 22:50 → 4EAST 22:50 → ENRESERV 23:15 → EDOF 05-21 00:18 → 4EAST 05-21 00:19 → ENPENDDIS 05-26 → 4EAST 05-26 13:45
PROVIDERS: Emergency Medicine; Internal Medicine
PROC: 30233N1 Transfusion of Nonautologous Red Blood Cells into Peripheral Vein, Percutaneous Approach (ICD-10-PCS; principal; 2017-05-20)
DX: R78.81 Bacteremia (principal); N17.9 Acute kidney failure, unspecified; Z94.4 Liver transplant status; L03.116 Cellulitis of left lower limb; L03.115 Cellulitis of right lower limb; L89.309 Pressure ulcer of unspecified buttock, unspecified stage; L97.911 Non-pressure chronic ulcer of unspecified part of right lower leg limited to breakdown of skin; L97.921 Non-pressure chronic ulcer of unspecified part of left lower leg limited to breakdown of skin; E87.5 Hyperkalemia; G62.9 Polyneuropathy, unspecified; D63.8 Anemia in other chronic diseases classified elsewhere; K70.30 Alcoholic cirrhosis of liver without ascites; F10.21 Alcohol dependence, in remission; I87.2 Venous insufficiency (chronic) (peripheral); R23.8 Other skin changes; I87.8 Other specified disorders of veins; Z87.891 Personal history of nicotine dependence
CPT/HCPCS: 71010; 80053; 80069; 80076; 80202; 82140; 83735; 85025; 85027; 85610; 85730; 86850; 86900; 86901; 86920; 87040; 93005; 93306; 94799; 99281; 99285; A6212; G0480; J0692; J1644; J1940; J3370; J7050; J7507; J7512; J7517; P9016